=== PATIENT | male | born 1960 | race Caucasian/White ===

== ENCOUNTER 2016-12-01 09:17 | Inpatient (IN) | payer OTHER ==
[2016-12-01] VITALS (19 sets, daily range): BP systolic 98–144; BP diastolic 64–91
[~2016-12-01] VITALS: Ht 175.3 cm; Wt 84.5 kg
[2016-12-01] MEDS ORDERED: HEPARIN for IV BOLUS 10,000 UNIT/10 ML VIAL. ONE ×2 (09:31→10:16)
[2016-12-01] MEDS ORDERED: HEPARIN for IV BOLUS 10,000 UNIT/10 ML VIAL. IV ONE ×2 (09:32→10:30)
[2016-12-01] MEDS ORDERED: LIDOCAINE 1% Multi-Dose 20 ML VIAL. ONE (09:45)
[2016-12-01] MEDS ORDERED: ONDANSETRON PF 4 MG/2 ML VIAL. IV PRN ×2 (09:45→11:15)
[2016-12-01] MEDS ORDERED: fentaNYL PF VIAL 100 MCG/2 ML VIAL IV ONE ×3 (09:45→10:30)
[2016-12-01] MEDS ORDERED: fentaNYL PF VIAL 100 MCG/2 ML VIAL ONE (09:45)
[2016-12-01] MEDS ORDERED: IOHEXOL 300 MG/ML 100ML VIAL. ONE ×2 (09:45→09:46)
[2016-12-01] MEDS ORDERED: HEPARIN for ARTERIAL LINE 1,500 ML ONE (09:45)
[2016-12-01] MEDS ORDERED: fentaNYL PF VIAL 100 MCG/2 ML VIAL IV PRN ×2 (09:45→11:15)
--- NOTE | 2016-12-01 09:45 | PHYS DOC ---
Adult General Chief Complaint Chief Complaint: CHEST PAIN-CARDIAC NATURE HPI HPI Patient is a 56 year old male presenting to the emergency department for evaluation of intense chest pressure that started approximately 1 hour prior to arrival while he was mowing his lawn with a push mower. He says it feels like 100 pound weight is sitting on his chest and makes him somewhat nauseated and short of breath. He was given 100 g of fentanyl prior to arrival in addition to 325 aspirin. [facility] was unable to transmit and EKG however based off with their saying the [facility] was activated as soon as we took report. Patient does look ill arrival and is somewhat hypertensive. He had a transient episode of bradycardia at 50 bpm and his blood pressure decreased to 122/60. He was not given any nitroglycerin by EMS for us. Dr. Simpson came down emergently and agreed to take patient to [facility]. Review of Systems Review of Systems Constitutional: Cool and pale and ill-appearing Eyes: Denies change in visual acuity, redness, or eye pain [] HENT: Denies nasal congestion or sore throat [] Respiratory: Denies cough. + shortness of breath [] Cardiovascular: + CP GI: Denies abdominal pain. + nausea. No vomiting, bloody stools or diarrhea [] : Denies dysuria or hematuria [] Musculoskeletal: Denies back pain or joint pain [] Integument: Denies rash or skin lesions [] Neurologic: Denies headache, focal weakness or sensory changes [] Current Medications Current Medications Current Medications Medications (Trade) Dose Ordered Sig/Henrietta Start Time Stop Time Status Last Admin Dose Admin Heparin Sodium (Porcine) (Heparin Sodium) 4,000 unit 1X ONCE 12/01/16 09:32 12/01/16 09:47 DC 12/01/16 09:32 4,000 UNIT Allergies Allergies Allergies Coded Allergies Type Severity Reaction Last Updated Verified No Known Drug Allergies 12/01/16 No Physical Exam Physical Exam Constitutional: Cool and pale and ill-appearing HENT: Normocephalic, atraumatic, bilateral external ears normal, oropharynx moist, no oral exudates, nose normal. [] Eyes: PERRLA, EOMI, conjunctiva normal, no discharge. [] Neck: Normal range of motion, no tenderness, supple, no stridor. [] Cardiovascular:Heart rate regular rhythm, no murmur [] Lungs & Thorax: Bilateral breath sounds clear to auscultation [] Abdomen: Bowel sounds normal, soft, no tenderness, no masses, no pulsatile masses. [] Skin: cool, dry, no erythema, no rash. [] Back: No tenderness, no CVA tenderness. [] Extremities: No tenderness, no cyanosis, no clubbing, ROM intact, no edema. [] Neurologic: Alert and oriented X 3, normal motor function, normal sensory function, no focal deficits noted. [] Current Patient Data Vital Signs Vital Signs Date Time Temp Pulse Resp B/P (MAP) Pulse Ox O2 Delivery O2 Flow Rate FiO2 12/01/16 09:35 52 13 125/86 (99) 98 12/01/16 09:17 98.8 Room Air 98.8 Lab Values Laboratory Tests Test 12/01/16 09:30 White Blood Count 8.1 x10^3/uL (4.0-11.0) Red Blood Count 4.99 x10^6/uL (4.30-5.70) Hemoglobin 15.8 g/dL (13.0-17.5) Hematocrit 43.1 % (39.0-53.0) Mean Corpuscular Volume 87 fL (79-100) Mean Corpuscular Hemoglobin 32 pg (25-35) Mean Corpuscular Hemoglobin Concent 37 g/dL (31-37) Red Cell Distribution Width 12.6 % (11.5-14.5) Platelet Count 215 x10^3/uL (140-400) Neutrophils (%) (Auto) 69 % (31-73) Lymphocytes (%) (Auto) 22 % (24-48) L Monocytes (%) (Auto) 8 % (0-9) Eosinophils (%) (Auto) 1 % (0-3) Basophils (%) (Auto) 0 % (0-3) Neutrophils # (Auto) 5.6 x10^3uL (1.8-7.7) Lymphocytes # (Auto) 1.8 x10^3/uL (1.0-4.8) Monocytes # (Auto) 0.6 x10^3/uL (0.0-1.1) Eosinophils # (Auto) 0.1 x10^3/uL (0.0-0.7) Basophils # (Auto) 0.0 x10^3/uL (0.0-0.2) Prothrombin Time 13.0 SEC (11.7-14.0) Prothrombin Time INR 1.0 (0.8-1.1) PTT 25 SEC (24-38) Ethyl Alcohol Level < 10 mg/dL (0-10) Laboratory Tests 12/01/16 09:[address] elevation primarily in leads 23 and aVF with some reciprocal ST depression in lead V1 and V2. Radiology/Procedures Radiology/Procedures Chest x-ray shows normal mediastinum borderline cardiomegaly with no obvious free air pneumothorax or opacity. Course & Med Decision Making Course & Med Decision Making Patient is likely suffering from some inferior or posterior ischemia. Patient taken emergently to [facility]. Patient in and out of the department in approximately 35 minutes. There was no obvious arrhythmias noted other than transient sinus bradycardia and his pain was treated with fentanyl. Dragon Disclaimer Dragon Disclaimer This electronic medical record was generated, in whole or in part, using a voice recognition dictation system. Departure Departure Impression: Primary Impression: STEMI (ST elevation myocardial infarction) Disposition: 09 ADMITTED INPATIENT Admitting Physician: Ramón Arriaga Condition: GUARDED Problem Qualifiers Primary Impression: STEMI (ST elevation myocardial infarction) Involved coronary artery: unspecified coronary artery Qualified Codes: I21.3 - ST elevation (STEMI) myocardial infarction of unspecified site PASQUALE LEON DO Dec 01, 2016 09:45
[2016-12-01 09:46] LABS: BASO % 0 % (0-3); EOS % 1 % (0-3); HEMATOCRIT 43.1 % (39.0-53.0); HEMOGLOBIN 15.8 g/dL (13.0-17.5); LYMPH # 1.8 x10^3/uL (1.0-4.8); LYMPH % 22 % (24-48); MEAN CORPUSCULAR HEMOGLOBIN 32 pg (25-35); MEAN CORPUSCULAR HGB CONC 37 g/dL (31-37); MEAN CORPUSCULAR VOLUME 87 fL (79-100); MONO % 8 % (0-9); NEUT % 69 % (31-73); PLATELET COUNT 215 x10^3/uL (140-400); RED BLOOD COUNT 4.99 x10^6/uL (4.30-5.70); RED CELL DISTRIBUTION WIDTH 12.6 % (11.5-14.5); WHITE BLOOD COUNT 8.1 x10^3/uL (4.0-11.0)
[2016-12-01] MEDS ORDERED: MIDAZOLAM HCL/PF 2 MG/2 ML VIAL. ONE (09:46)
[2016-12-01] MEDS ORDERED: LIDOCAINE 2% 20 ML VIAL. ONE (09:46)
--- NOTE | 2016-12-01 09:49 | ACF ---
Admission Forms Criteria MYOCARDIAL INFARCTION Clinical Indications for Admission to Inpatient Care (Place 'X' for any and all applicable criteria): Admission is indicated for 1 or more of the following (1)(2)(3)(4): [X]I. Acute VA [ ]II. Contraindications and/or Inappropriate clinical situations for Observational Care in patients with Myocardial Infarction, when ANY ONE of the following is required: [ ]a) Patient with High risk of cardiac embolism (e.g, patients with previous cardiac embolism, LVEF < 40%, age >75 and patients with prosthetic valve) 18 [ ]b) Patient with Moderate risk including DM patient, CAD and patient aged 65-75 18 [ ]c) Patient with any change in cardiac biomarker especially troponin should be managed as high risk in an inpatient setting 19 [ ]d) Physician judgement irrespective of ECG and other diagnostic findings 20 [ ]III.General contraindications and/or Inappropriate clinical situations for Observational Care in patients with Myocardial Infarction, when ANY ONE of the following is required: [ ]a) Prediction of prolongation of LOS based on ANY ONE of the following may be considered as a contraindication for observational care 2, 3, 4, 5, 6, 7, 8, 9, 10, 11 [ ]i) Age > 65 yrs. [ ]ii) Patient arriving by ambulance [ ]iii) Patient with high acuity [ ]iv) Patient requiring vital sign monitoring [ ]v) Patient on IV medication [ ]b) Systolic blood pressures greater than or equal to 180mmHg 3,12 [ ]c) Patient with altered mental status including delirium and other alteration of consciousness, (3) [ ]d) Patient whose discharge disposition will be to a [place] [facility] home or rehabilitation home should not be managed in Emergency Department Observation Unit. CMS rule requires 3 days hospital stay before such placement. 3,13 [ ]e) Patient with failure to thrive due to broad array of etiologies 3 ,16,17 [ ]f) Inability to ambulate 3,14 Extended stay beyond goal length of stay may be needed for (1)(18)(20)(24)(25): [ ]a) Hemodynamic instability, persisting symptoms after intensive medical management, or recurring severe, prolonged symptoms [ ]b) Intravascular procedural complications such as acute vessel closure, stent thrombosis, stent malposition, or vessel dissection (26)(27)(28) [ ]c) Extravascular procedural complications such as retroperitoneal hematoma , pericardial effusion, or cardiac tamponade [ ]d) Entry site complications causing bleeding, hematoma or distal ischemia and requiring ongoing monitoring, surgical repair or surgical thrombectomy. Dangerous arrhythmia [ ]e) Complicated percutaneous coronary intervention (e.g., unsuccessful percutaneous coronary intervention or percutaneous coronary intervention of non- kake vessel) [ ]f) Urgent or emergent surgery for complications of VA (e.g., ventricular rupture, valvular insufficiency) [ ]g) Surgical revascularization via coronary artery bypass graft [ ]h) Heart failure (e.g., pulmonary edema) [ ]i) Unstable pulmonary comorbidities, including COPD or pneumonia (31) [ ]j) Acute renal failure The original [employer] content created by [employer] has been revised. The portions of the content which have been revised are identified through the use of italic text or in bold, and [facility] [email or web address] has neither reviewed nor approved the modified material. All other unmodified content is copyright [facility] [email or web address] Please see references footnoted in the original [facility] [email or web address] edition 2016 Admission Criteria Met?: Yes LEO SMITH Dec 01, 2016 09:49
--- NOTE | 2016-12-01 10:03 | RAD ---
Indication chest pain. A single view of the chest was obtained and is compared to an examination 03/17/2010. The level of inspiratory effort is slightly suboptimal. The heart and pulmonary vessels are within normal limits given the level of inspiratory effort. A focal process in the chest is not seen. Significant pleural fluid is not present. There is no pneumothorax. IMPRESSION: Slightly suboptimal inspiratory effort. Acute or focal process in the chest is not seen
[2016-12-01] MEDS ORDERED: ATROPINE 0.5 MG/5 ML DISP.SYRIN. ONE (10:04)
[2016-12-01 10:05] LABS: ALBUMIN 3.8 g/dL (3.4-5.0); ALBUMIN/GLOBULIN RATIO 1.2 (1.0-1.7); CREATININE 0.9 mg/dL (0.7-1.3); GFR 87.6; MAGNESIUM 1.9 mg/dL (1.8-2.4); TOTAL BILIRUBIN 1.2 mg/dL (0.2-1.0); TOTAL PROTEIN 7.1 g/dL (6.4-8.2)
[2016-12-01] MEDS ORDERED: TIROFIBAN 12.5MG -0.9% NS 250 ML IV ONE (10:13)
[2016-12-01] MEDS ORDERED: LIDOCAINE 2% 20 ML VIAL. IJ ONE (10:30)
[2016-12-01] MEDS ORDERED: IOHEXOL 300 MG/ML 100ML VIAL. IART ONE (10:30)
[2016-12-01] MEDS ORDERED: ATROPINE 0.5 MG/5 ML DISP.SYRIN. IV ONE (10:30)
[2016-12-01] MEDS ORDERED: CONTRAST GIVEN MC PRN (10:45)
[2016-12-01] MEDS ORDERED: IV NORMAL SALINE 1000ML BAG 1,000 ML IV ONE (10:45)
[2016-12-01] MEDS: TIROFIBAN 12.5MG -0.9% NS 250 ML IV PRN (10:50)
[2016-12-01] MEDS ORDERED: TICAGRELOR 90 MG TABLET. ONE (10:54)
[2016-12-01] MEDS ORDERED: TICAGRELOR 90 MG TABLET. PO ONE (11:00)
--- NOTE | 2016-12-01 11:01 | PDOC2 ---
CONSULT Date of Consult Date of Consult DATE: 12/01/16 TIME: 10:53 Reason for Consult Reason for Consult: chest pain Referring Physician Referring Physician: Dr. Arriaga Identification/Chief Complaint Chief Complaint chest pain Source Source: Patient History of Present Illness Reason for Visit: The patient is a 56 year old male who developed chest pain while mowing his lawn about 60 minutes ago. Paramedics were called and after an EKG was obtained a STEMI was called..The patient arrived in the ER with continued chest pain. ASA was given and a repeat EKG was suggestive of an inferior wall CA. 4,000 units of heparin were given. The patient has an allergy to PCN. No history of CAD but he takes blood pressure medication. An emergency cath and possible revascularization was recommended. Risks and benefits discussed. The patient agreed to proceed. Past Medical History Cardiovascular: HTN Past Surgical History Past Surgical History: No pertinent history Family History Family History: Hypertension Social History No Current Medications Current Medications Current Medications Heparin Sodium (Porcine) (Heparin Sodium) 10,000 unit STK-MED ONCE .ROUTE ; Start 12/01/16 at 09:31; Stop 12/01/16 at 09:32; Status DC Ondansetron HCl (Zofran) 4 mg PRN Q8HRS PRN IV NAUSEA/VOMITING; Start 12/01/16 at 09:45; Stop 12/02/16 at 09:44 Fentanyl Citrate (Fentanyl 2ml Vial) 50 mcg PRN Q2HR PRN IV PAIN; Start at 09:45; Stop 12/02/16 at 09:44 Fentanyl Citrate (Fentanyl 2ml Vial) 50 mcg 1X ONCE IV Last administered on 09:37; Start 12/01/16 at 09:45; Stop 12/01/16 at 09:46; Status DC Iohexol (Omnipaque 300 Mg/ml) 100 ml STK-MED ONCE .ROUTE ; Start 12/01/16 at 09: 45; Stop 12/01/16 at 09:46; Status DC Heparin Sodium/ Sodium Chloride 1,500 ml @ As Directed STK-MED ONCE .ROUTE ; Start 12/01/16 at 09:45; Stop 12/01/16 at 09:46; Status DC Heparin Sodium (Porcine) (Heparin Sodium) 4,000 unit 1X ONCE IV Last administered on 12/01/16 09:32; Start 12/01/16 at 09:32; Stop 12/01/16 at 09:47 ; Status DC Lidocaine HCl 20 ml STK-MED ONCE .ROUTE ; Start 12/01/16 at 09:45; Stop at 09:46; Status DC Fentanyl Citrate (Fentanyl 2ml Vial) 100 mcg STK-MED ONCE .ROUTE ; Start at 09:45; Stop 12/01/16 at 09:46; Status DC Midazolam HCl (Versed) 2 mg STK-MED ONCE .ROUTE ; Start 12/01/16 at 09:46; Stop 12/01/16 at 09:47; Status DC Lidocaine HCl 20 ml STK-MED ONCE .ROUTE ; Start 12/01/16 at 09:46; Stop at 09:47; Status DC Iohexol (Omnipaque 300 Mg/ml) 100 ml STK-MED ONCE .ROUTE ; Start 12/01/16 at 09: 46; Stop 12/01/16 at 09:47; Status DC Fentanyl Citrate (Fentanyl 2ml Vial) 50 mcg 1X ONCE IV Last administered on t 09:50; Start 12/01/16 at 10:00; Stop 12/01/16 at 10:01; Status DC Atropine Sulfate 0.5 mg STK-MED ONCE .ROUTE ; Start 12/01/16 at 10:04; Stop 04/09 at 10:05; Status DC Dopamine HCl/ Dextrose 250 ml @ As Directed STK-MED ONCE IV ; Start 12/01/16 at 10:04; Stop 12/01/16 at 10:05; Status DC Tirofiban/Sodium Chloride 250 ml @ As Directed STK-MED ONCE IV ; Start at 10:13; Stop 12/01/16 at 10:14; Status DC Heparin Sodium (Porcine) (Heparin Sodium) 10,000 unit STK-MED ONCE .ROUTE ; Start 12/01/16 at 10:16; Stop 12/01/16 at 10:17; Status DC Heparin Sodium/ Sodium Chloride 1,000 unit 1X ONCE IART ; Start 12/01/16 at 10: 30; Stop 12/01/16 at 10:35; Status DC Fentanyl Citrate (Fentanyl 2ml Vial) 25 mcg 1X ONCE IV ; Start 12/01/16 at 10: 30; Stop 12/01/16 at 10:35; Status DC Iohexol (Omnipaque 300 Mg/ml) 100 ml 1X ONCE IART ; Start 12/01/16 at 10:30; Stop 12/01/16 at 10:35; Status DC Heparin Sodium (Porcine) (Heparin Sodium) 2,000 unit 1X ONCE IV Last administered on 12/01/16t 10:49; Start 12/01/16 at 10:30; Stop 12/01/16 at 10:35 ; Status DC Atropine Sulfate 0.5 mg 1X ONCE IV ; Start 12/01/16 at 10:30; Stop 12/01/16 at 10:35; Status DC Lidocaine HCl 20 ml 1X ONCE IJ ; Start 12/01/16 at 10:30; Stop 12/01/16 at 10: 35; Status DC Tirofiban/Sodium Chloride 250 ml @ 0 mls/hr CONT PRN IV PER PROTOCOL; Start 04/09 at 10:30; Stop 12/02/16 at 04:29 Info (Do NOT chart on this entry -- for MONITORING) 1 each PRN DAILY PRN MC SEE COMMENTS; Start 12/01/16 at 10:45; Stop 12/03/16 at 10:44 Ticagrelor (Brilinta) 180 mg 1X ONCE PO ; Start 12/01/16 at 11:00; Stop at 11:01 Sodium Chloride 1,000 ml @ 100 mls/hr 1X ONCE IV ; Start 12/01/16 at 10:45; Stop 12/01/16 at 20:44 Allergies Allergies: Coded Allergies: No Known Drug Allergies (Unverified , 12/01/16) ROS Respiratory: YES: Shortness of breath Cardiovascular: yes Chest Pain Gastrointestinal: Yes Nausea Physical Exam General: moderate distress HEENT: Atraumatic Lungs: Clear to auscultation Heart: Regular rate Abdomen: Normal bowel sounds Vitals VITALS Vital Signs Date Time Temp Pulse Resp B/P (MAP) Pulse Ox O2 Delivery O2 Flow Rate FiO2 12/01/16 10:40 70 16 99 Nasal Cannula 2.0 12/01/16 09:45 143/95 (111) 12/01/16 09:17 98.8 98.8 Labs Labs Laboratory Tests Test 12/01/16 09:30 White Blood Count 8.1 x10^3/uL (4.0-11.0) Red Blood Count 4.99 x10^6/uL (4.30-5.70) Hemoglobin 15.8 g/dL (13.0-17.5) Hematocrit 43.1 % (39.0-53.0) Mean Corpuscular Volume 87 fL (79-100) Mean Corpuscular Hemoglobin 32 pg (25-35) Mean Corpuscular Hemoglobin Concent 37 g/dL (31-37) Red Cell Distribution Width 12.6 % (11.5-14.5) Platelet Count 215 x10^3/uL (140-400) Neutrophils (%) (Auto) 69 % (31-73) Lymphocytes (%) (Auto) 22 % (24-48) Monocytes (%) (Auto) 8 % (0-9) Eosinophils (%) (Auto) 1 % (0-3) Basophils (%) (Auto) 0 % (0-3) Neutrophils # (Auto) 5.6 x10^3uL (1.8-7.7) Lymphocytes # (Auto) 1.8 x10^3/uL (1.0-4.8) Monocytes # (Auto) 0.6 x10^3/uL (0.0-1.1) Eosinophils # (Auto) 0.1 x10^3/uL (0.0-0.7) Basophils # (Auto) 0.0 x10^3/uL (0.0-0.2) Prothrombin Time 13.0 SEC (11.7-14.0) Prothromb Time International Ratio 1.0 (0.8-1.1) Activated Partial Thromboplast Time 25 SEC (24-38) Sodium Level 141 mmol/L (136-145) Potassium Level 3.0 mmol/L (3.5-5.1) Chloride Level 104 mmol/L (98-107) Carbon Dioxide Level 27 mmol/L (21-32) Anion Gap 10 (6-14) Blood Urea Nitrogen 14 mg/dL (8-26) Creatinine 0.9 mg/dL (0.7-1.3) Estimated GFR (Cockcroft-Gault) 87.6 BUN/Creatinine Ratio 16 (6-20) Glucose Level 132 mg/dL (70-99) Calcium Level 9.0 mg/dL (8.5-10.1) Magnesium Level 1.9 mg/dL (1.8-2.4) Total Bilirubin 1.2 mg/dL (0.2-1.0) Aspartate Amino Transf (AST/SGOT) 18 U/L (15-37) Alanine Aminotransferase (ALT/SGPT) 23 U/L (16-63) Alkaline Phosphatase 63 U/L (46-116) Creatine Kinase 187 U/L (39-308) Troponin I Quantitative < 0.017 ng/mL (0.000-0.055) KQ-Iti-Y-Type Natriuretic Peptide 19 pg/mL (0-124) Total Protein 7.1 g/dL (6.4-8.2) Albumin 3.8 g/dL (3.4-5.0) Albumin/Globulin Ratio 1.2 (1.0-1.7) Lipase 80 U/L (73-393) Ethyl Alcohol Level < 10 mg/dL (0-10) Laboratory Tests Test 12/01/16 09:30 White Blood Count 8.1 x10^3/uL (4.0-11.0) Red Blood Count 4.99 x10^6/uL (4.30-5.70) Hemoglobin 15.8 g/dL (13.0-17.5) Hematocrit 43.1 % (39.0-53.0) Mean Corpuscular Volume 87 fL (79-100) Mean Corpuscular Hemoglobin 32 pg (25-35) Mean Corpuscular Hemoglobin Concent 37 g/dL (31-37) Red Cell Distribution Width 12.6 % (11.5-14.5) Platelet Count 215 x10^3/uL (140-400) Neutrophils (%) (Auto) 69 % (31-73) Lymphocytes (%) (Auto) 22 % (24-48) Monocytes (%) (Auto) 8 % (0-9) Eosinophils (%) (Auto) 1 % (0-3) Basophils (%) (Auto) 0 % (0-3) Neutrophils # (Auto) 5.6 x10^3uL (1.8-7.7) Lymphocytes # (Auto) 1.8 x10^3/uL (1.0-4.8) Monocytes # (Auto) 0.6 x10^3/uL (0.0-1.1) Eosinophils # (Auto) 0.1 x10^3/uL (0.0-0.7) Basophils # (Auto) 0.0 x10^3/uL (0.0-0.2) Prothrombin Time 13.0 SEC (11.7-14.0) Prothromb Time International Ratio 1.0 (0.8-1.1) Activated Partial Thromboplast Time 25 SEC (24-38) Sodium Level 141 mmol/L (136-145) Potassium Level 3.0 mmol/L (3.5-5.1) Chloride Level 104 mmol/L (98-107) Carbon Dioxide Level 27 mmol/L (21-32) Anion Gap 10 (6-14) Blood Urea Nitrogen 14 mg/dL (8-26) Creatinine 0.9 mg/dL (0.7-1.3) Estimated GFR (Cockcroft-Gault) 87.6 BUN/Creatinine Ratio 16 (6-20) Glucose Level 132 mg/dL (70-99) Calcium Level 9.0 mg/dL (8.5-10.1) Magnesium Level 1.9 mg/dL (1.8-2.4) Total Bilirubin 1.2 mg/dL (0.2-1.0) Aspartate Amino Transf (AST/SGOT) 18 U/L (15-37) Alanine Aminotransferase (ALT/SGPT) 23 U/L (16-63) Alkaline Phosphatase 63 U/L (46-116) Creatine Kinase 187 U/L (39-308) Troponin I Quantitative < 0.017 ng/mL (0.000-0.055) ZO-Poo-Q-Type Natriuretic Peptide 19 pg/mL (0-124) Total Protein 7.1 g/dL (6.4-8.2) Albumin 3.8 g/dL (3.4-5.0) Albumin/Globulin Ratio 1.2 (1.0-1.7) Lipase 80 U/L (73-393) Ethyl Alcohol Level < 10 mg/dL (0-10) Assessment/Plan Assessment/Plan 1. STEMI. ASA and heparin given. Pain continues. Emergency cath. 2. HTN. Will adjust meds post cath. 3. Probable HLD. Lipid panel in the morning. MAHESH OCHOA MD Dec 01, 2016 11:01
--- NOTE | 2016-12-01 11:04 | PDOC4 ---
Operative Note Operative Note Brief cath note. STEMI. LV 126/20, AO 124/76 Mild disease LAD and LCX. Subtotal proximal RCA lesion. 3.0 x 18 Drug eluting stent. 0% residual. Post FL and PCI protocol. Discussed with the patient and family. Full report to follow. MAHESH OCHOA MD Dec 01, 2016 11:04
--- NOTE | 2016-12-01 11:06 | EKG ---
[facility] [address] [place] [address] Test Date: 2016-12-01 Test Time: 09:20:28 Pat Name: NANITA CLARK Department: Room: 104 1 Gender: M [employer] S[employer] Assistant: : [id number] Requested By: PASQUALE LEON Order Number: [id number] Reading MD: Mary Cummins Measurements Intervals Booker Rate: 61 P: 61 NC: 182 QRS: 43 QRSD: 100 T: 110 QT: 412 QTc: 420 Interpretive Statements SINUS RHYTHM ST & T ABNORMALITY, CONSIDER HIGH LATERAL ISCHEMIA OR LEFT VENTRICULAR STRAIN ABNORMAL ECG RI6.01 No previous ECG available for comparison Electronically Signed On 12-01-2016 19:46:05 CDT by Mary Cummins
[2016-12-01] MEDS ORDERED: IV NORMAL SALINE 1000ML BAG 1,000 ML IV SCH (11:07)
[2016-12-01] MEDS ORDERED: NITROGLYCERIN SUBLINGUAL 0.4 MG BOTTLE OF 25. SL PRN (11:15)
[2016-12-01] MEDS ORDERED: AMIODARONE 150 MG in IV DEXTROSE 5% 100 ML IV PRN (11:15)
[2016-12-01] MEDS ORDERED: 0.9 % SODIUM CHLORIDE 10 ML DISP.SYRIN. IV PRN (11:15)
[2016-12-01] MEDS ORDERED: LIDOCAINE 2% 100 MG/5 ML SYRINGE. IV PRN (11:15)
[2016-12-01] MEDS ORDERED: ATROPINE 0.5 MG/5 ML DISP.SYRIN. IV PRN (11:15)
[2016-12-01] MEDS ORDERED: ACETAMINOPHEN 325 MG TABLET. PO PRN (11:15)
[2016-12-01] MEDS ORDERED: oxyCODONE/APAP 5/325 1 TAB TABLET PO PRN (11:15)
[2016-12-01] MEDS ORDERED: TIROFIBAN 12.5MG -0.9% NS 250 ML IV PRN (11:15)
[2016-12-01] MEDS: LISINOPRIL 5 MG TABLET. PO SCH (12:50)
--- NOTE | 2016-12-01 15:33 | PDOC1 ---
History and Physical Past Medical History Cardiovascular: HTN Past Surgical History Past Surgical History: No pertinent history Family History Family History: Hypertension Social History Smoke: No Current Medications Current Medications Current Medications Medications (Trade) Dose Ordered Sig/Henrietta Start Time Stop Time Status Last Admin Dose Admin Acetaminophen (Tylenol) 650 mg PRN Q6HRS PRN 12/01/16 11:15 Amiodarone HCl 150 mg/Dextrose 103 ml @ 10 mls/min 1X PRN PRN 12/01/16 11:15 Aspirin (Ecotrin) 81 mg [id number] 12/02/16 08:00 Atorvastatin Calcium (Lipitor) 20 mg QHS 12/01/16 21:00 Atropine Sulfate 0.5 mg PRN 1X PRN 12/01/16 11:15 Dopamine HCl/ Dextrose 0 ml @ As Directed STK-MED ONCE 12/01/16 10:04 12/01/16 10:05 DC Fentanyl Citrate (Fentanyl 2ml Vial) 50 mcg PRN Q1HR PRN 12/01/16 11:15 Heparin Sodium (Porcine) (Heparin Sodium) 2,000 unit 1X ONCE 12/01/16 10:30 12/01/16 10:35 DC 12/01/16 10:49 2,000 UNIT Heparin Sodium/ Sodium Chloride 1,000 unit 1X ONCE 12/01/16 10:30 12/01/16 10:35 DC 12/01/16 10:52 1,000 UNIT Info (Do NOT chart on this entry -- for MONITORING) 1 each PRN DAILY PRN 12/01/16 10:45 12/03/16 10:44 Iohexol (Omnipaque 300 Mg/ml) 100 ml 1X ONCE 12/01/16 10:30 12/01/16 10:35 DC 12/01/16 10:52 84 ML Lidocaine HCl (Lidocaine HCl 2% Abboject) 100 mg 1X PRN PRN 12/01/16 11:15 Lisinopril (Prinivil) 5 mg DAILY 12/01/16 12:30 12/01/16 12:50 5 MG Metoprolol Tartrate (Lopressor) 12.5 mg BID 12/01/16 21:00 Midazolam HCl (Versed) 2 mg STK-MED ONCE 12/01/16 09:46 12/01/16 09:47 DC Nitroglycerin (Nitrostat) 0.4 mg PRN Q5MIN PRN 12/01/16 11:15 Ondansetron HCl (Zofran) 4 mg PRN Q6HRS PRN 12/01/16 11:15 Oxycodone/ Acetaminophen (Percocet 5/325) 1 tab PRN Q4HRS PRN 12/01/16 11:15 Sodium Chloride 1,000 ml @ 75 mls/hr [id number] 12/01/16 11:07 12/01/16 23:06 12/01/16 12:51 75 MLS/HR Sodium Chloride (Normal Saline Flush) 3 ml QSHIFT PRN 12/01/16 11:15 Ticagrelor (Brilinta) 90 mg BID 12/02/16 09:00 Tirofiban/Sodium Chloride 250 ml @ 0 mls/hr CONT PRN 12/01/16 11:15 12/02/16 05:14 Allergies Allergies Allergies Coded Allergies Type Severity Reaction Last Updated Verified No Known Drug Allergies 12/01/16 No ROS Review of System CONSTITUTIONAL: No fever or chills EYES: No recent changes SKIN: No rash or itching CARDIOVASCULAR: chest pain, no syncope, palpitations, or edema RESPIRATORY: No SOB or cough GASTROINTESTINAL: No nausea, vomiting or abdominal pain NEUROLOGICAL: No headaches or weakness ENDOCRINE: No cold or heat intolerance GENITOURINARY: No urgency or frequency of urination MUSCULOSKELETAL: No back pain or joint pain LYMPHATICS: No enlarged lymph nodes PSYCHIATRIC: No anxiety or depression Physical Exam Physical Exam GEN.: No apparent distress. Alert and oriented. HEENT: Head is normocephalic, atraumatic NECK: Supple. no jvd LUNGS: Clear to auscultation. normal airflow. HEART: RRR, S1, S2 present. Peripheral pulses intact ABDOMEN: Soft, nontender. Positive bowel sounds. EXTREMITIES: Without any cyanosis. NEUROLOGIC: Normal speech, normal tone PSYCHIATRIC: Normal affect, normal mood. SKIN: No ulcerations Vitals Vitals Vital Signs Date Time Temp Pulse Resp B/P (MAP) Pulse Ox O2 Delivery O2 Flow Rate FiO2 12/01/16 15:00 85 16 100/67 (78) 99 Nasal Cannula 2.0 12/01/16 11:00 97.4 97.4 Labs Labs Laboratory Tests Test 12/01/16 09:30 White Blood Count 8.1 x10^3/uL (4.0-11.0) Red Blood Count 4.99 x10^6/uL (4.30-5.70) Hemoglobin 15.8 g/dL (13.0-17.5) Hematocrit 43.1 % (39.0-53.0) Mean Corpuscular Volume 87 fL (79-100) Mean Corpuscular Hemoglobin 32 pg (25-35) Mean Corpuscular Hemoglobin Concent 37 g/dL (31-37) Red Cell Distribution Width 12.6 % (11.5-14.5) Platelet Count 215 x10^3/uL (140-400) Neutrophils (%) (Auto) 69 % (31-73) Lymphocytes (%) (Auto) 22 % (24-48) Monocytes (%) (Auto) 8 % (0-9) Eosinophils (%) (Auto) 1 % (0-3) Basophils (%) (Auto) 0 % (0-3) Neutrophils # (Auto) 5.6 x10^3uL (1.8-7.7) Lymphocytes # (Auto) 1.8 x10^3/uL (1.0-4.8) Monocytes # (Auto) 0.6 x10^3/uL (0.0-1.1) Eosinophils # (Auto) 0.1 x10^3/uL (0.0-0.7) Basophils # (Auto) 0.0 x10^3/uL (0.0-0.2) Prothrombin Time 13.0 SEC (11.7-14.0) Prothromb Time International Ratio 1.0 (0.8-1.1) Activated Partial Thromboplast Time 25 SEC (24-38) Sodium Level 141 mmol/L (136-145) Potassium Level 3.0 mmol/L (3.5-5.1) Chloride Level 104 mmol/L (98-107) Carbon Dioxide Level 27 mmol/L (21-32) Anion Gap 10 (6-14) Blood Urea Nitrogen 14 mg/dL (8-26) Creatinine 0.9 mg/dL (0.7-1.3) Estimated GFR (Cockcroft-Gault) 87.6 BUN/Creatinine Ratio 16 (6-20) Glucose Level 132 mg/dL (70-99) Calcium Level 9.0 mg/dL (8.5-10.1) Magnesium Level 1.9 mg/dL (1.8-2.4) Total Bilirubin 1.2 mg/dL (0.2-1.0) Aspartate Amino Transf (AST/SGOT) 18 U/L (15-37) Alanine Aminotransferase (ALT/SGPT) 23 U/L (16-63) Alkaline Phosphatase 63 U/L (46-116) Creatine Kinase 187 U/L (39-308) Troponin I Quantitative < 0.017 ng/mL (0.000-0.055) FF-Qus-I-Type Natriuretic Peptide 19 pg/mL (0-124) Total Protein 7.1 g/dL (6.4-8.2) Albumin 3.8 g/dL (3.4-5.0) Albumin/Globulin Ratio 1.2 (1.0-1.7) Lipase 80 U/L (73-393) Ethyl Alcohol Level < 10 mg/dL (0-10) Laboratory Tests Test 12/01/16 09:30 White Blood Count 8.1 x10^3/uL (4.0-11.0) Red Blood Count 4.99 x10^6/uL (4.30-5.70) Hemoglobin 15.8 g/dL (13.0-17.5) Hematocrit 43.1 % (39.0-53.0) Mean Corpuscular Volume 87 fL (79-100) Mean Corpuscular Hemoglobin 32 pg (25-35) Mean Corpuscular Hemoglobin Concent 37 g/dL (31-37) Red Cell Distribution Width 12.6 % (11.5-14.5) Platelet Count 215 x10^3/uL (140-400) Neutrophils (%) (Auto) 69 % (31-73) Lymphocytes (%) (Auto) 22 % (24-48) Monocytes (%) (Auto) 8 % (0-9) Eosinophils (%) (Auto) 1 % (0-3) Basophils (%) (Auto) 0 % (0-3) Neutrophils # (Auto) 5.6 x10^3uL (1.8-7.7) Lymphocytes # (Auto) 1.8 x10^3/uL (1.0-4.8) Monocytes # (Auto) 0.6 x10^3/uL (0.0-1.1) Eosinophils # (Auto) 0.1 x10^3/uL (0.0-0.7) Basophils # (Auto) 0.0 x10^3/uL (0.0-0.2) Prothrombin Time 13.0 SEC (11.7-14.0) Prothromb Time International Ratio 1.0 (0.8-1.1) Activated Partial Thromboplast Time 25 SEC (24-38) Sodium Level 141 mmol/L (136-145) Potassium Level 3.0 mmol/L (3.5-5.1) Chloride Level 104 mmol/L (98-107) Carbon Dioxide Level 27 mmol/L (21-32) Anion Gap 10 (6-14) Blood Urea Nitrogen 14 mg/dL (8-26) Creatinine 0.9 mg/dL (0.7-1.3) Estimated GFR (Cockcroft-Gault) 87.6 BUN/Creatinine Ratio 16 (6-20) Glucose Level 132 mg/dL (70-99) Calcium Level 9.0 mg/dL (8.5-10.1) Magnesium Level 1.9 mg/dL (1.8-2.4) Total Bilirubin 1.2 mg/dL (0.2-1.0) Aspartate Amino Transf (AST/SGOT) 18 U/L (15-37) Alanine Aminotransferase (ALT/SGPT) 23 U/L (16-63) Alkaline Phosphatase 63 U/L (46-116) Creatine Kinase 187 U/L (39-308) Troponin I Quantitative < 0.017 ng/mL (0.000-0.055) XA-Gme-E-Type Natriuretic Peptide 19 pg/mL (0-124) Total Protein 7.1 g/dL (6.4-8.2) Albumin 3.8 g/dL (3.4-5.0) Albumin/Globulin Ratio 1.2 (1.0-1.7) Lipase 80 U/L (73-393) Ethyl Alcohol Level < 10 mg/dL (0-10) VTE Prophylaxis Ordered VTE Prophylaxis Devices: Yes VTE Pharmacological Prophylaxi: No AMIE JUSTICE MD Dec 01, 2016 15:33
[2016-12-01] MEDS ORDERED: POTASSIUM CHLORIDE 20 MEQ TABLET.ER. PO ONE (15:45)
--- NOTE | 2016-12-01 15:49 | EKG ---
[address] [place] [address] Test Date: 2016-12-01 Test Time: 15:49:31 Pat Name: ANNITA CLARK Department: Room: 104 1 Gender: M Product Demonstrator: : 1960 Requested By: MAHESH OCHOA Order Number: [id number] Reading MD: Karri Cheng Measurements Intervals Crawford Rate: 60 P: 59 PA: 166 QRS: 42 QRSD: 94 T: 73 QT: 444 QTc: 448 Interpretive Statements SINUS RHYTHM PVC Electronically Signed On 12-04-2016 8:41:56 CDT by Karri Cheng
--- NOTE | 2016-12-01 16:57 | HP ---
ADMIT DATE: 12/01/2016 TIME SEEN: 11:00 a.m. CHIEF COMPLAINT: Chest pain. HISTORY OF PRESENT ILLNESS: A 56-year-old male patient with prior history of hypertension, presented to the ER with complaints of acute onset of chest pain. Chest pain started this morning after he started mowing his lawn, located in the center of the chest, very intense. On arrival, he was diagnosed with STEMI and he was emergently taken to cardiac catheterization. I have seen the patient after cardiac catheterization in the Critical Care Unit and the patient was still complaining of some mild chest pain; however, this pain is much better. He says this is coming and going. He denies any other symptoms such as nausea, vomiting, or palpitations. PAST MEDICAL HISTORY: Hypertension. FAMILY HISTORY: Hypertension. PERSONAL HISTORY: No smoking, no alcohol, no drug abuse. REVIEW OF SYSTEMS: Please see my electronic H and P. PHYSICAL EXAMINATION: Please see my electronic H and P. ALLERGIES: NKDA. HOME MEDICATIONS: Reviewed and reconciled. Please see MRAD. LABORATORY FINDINGS: 1. CBC: Within normal limits. 2. Chemistry: First set of troponin 0.017 and potassium 3.0, sodium is 141, carbon dioxide is 27, anion gap is 10, creatinine 0.9. 3. Coagulation: INR 1.0 and PTT 25. IMAGING STUDIES: 1. Chest x-ray: No acute process seen. 2. EKG personally reviewed, inferior wall CA noted. ASSESSMENT: 1. Inferior wall ST-segment elevation myocardial infarction. 2. Status post cardiac catheterization with percutaneous coronary intervention to right coronary artery, drug-eluting stent placed. 3. Hypokalemia. 4. Hypertension. PLAN: 1. Postsurgery, the patient has been placed in the Critical Care Unit. Currently, he is on Brilinta, aspirin, Lipitor, metoprolol and lisinopril. We will continue supportive care. He will be monitored in the Critical Care Unit. Amiodarone placed for antiarrhythmia. 2. Continue current supportive care. Cardiology has been following. 3. CBC and BMP in a.m. 4. Potassium has been replaced. 5. Prognosis is good. 6. If the patient continued to have any chest pain, we will give p.r.n. nitroglycerin. 7. Monitor vitals closely. AMIE JUSTICE MD DR: Susan JOB#: [id number] / [id number] KAVITHA
[2016-12-01] MEDS: ATORVASTATIN CALCIUM 20 MG TABLET PO SCH (21:19)
[2016-12-01] MEDS: METOPROLOL TART IMMED RELEASE 25 MG TABLET. PO SCH (21:21)
[2016-12-02] VITALS (15 sets, daily range): BP systolic 79–107; BP diastolic 52–82
[2016-12-02] MEDS: TIROFIBAN 12.5MG -0.9% NS 250 ML IV PRN (00:09)
[2016-12-02 05:41] LABS: BASO % 0 % (0-3); EOS % 0 % (0-3); HEMATOCRIT 39.3 % (39.0-53.0); HEMOGLOBIN 14.1 g/dL (13.0-17.5); LYMPH # 1.1 x10^3/uL (1.0-4.8); LYMPH % 10 % (24-48); MEAN CORPUSCULAR HEMOGLOBIN 32 pg (25-35); MEAN CORPUSCULAR HGB CONC 36 g/dL (31-37); MEAN CORPUSCULAR VOLUME 88 fL (79-100); MONO % 6 % (0-9); NEUT % 84 % (31-73); PLATELET COUNT 174 x10^3/uL (140-400); RED BLOOD COUNT 4.46 x10^6/uL (4.30-5.70); RED CELL DISTRIBUTION WIDTH 13.2 % (11.5-14.5); WHITE BLOOD COUNT 11.6 x10^3/uL (4.0-11.0)
[2016-12-02 05:57] LABS: CALCIUM 8.8 mg/dL (8.5-10.1); CREATININE 0.9 mg/dL (0.7-1.3); GFR 87.6
[2016-12-02 06:04] LABS: MAGNESIUM 2.1 mg/dL (1.8-2.4)
[2016-12-02 06:06] LABS: CHOLESTEROL/HDL RATIO 4.8
[2016-12-02] MEDS: TICAGRELOR 90 MG TABLET. PO SCH ×2 (08:03→21:00)
[2016-12-02] MEDS: ASPIRIN ENTERIC COATED 81 MG TABLET.DR. PO SCH (08:03)
[2016-12-02] MEDS: METOPROLOL TART IMMED RELEASE 25 MG TABLET. PO SCH ×2 (09:00→21:00)
[2016-12-02] MEDS: LISINOPRIL 5 MG TABLET. PO SCH (09:00)
--- NOTE | 2016-12-02 10:25 | PDOC ---
PROGRESS NOTES Chief Complaint Chief Complaint cc: chest pain A/P 1. Inferior wall ST-segment elevation myocardial infarction: overnight VT 40 Beat, will monitor on telemetry, asymptomatic. not ready for dc home. on amiodarone. 2. Status post cardiac catheterization with percutaneous coronary intervention to right coronary artery, drug-eluting stent placed. 3. Hypokalemia Resolved 4. Hypertension. stable. Vitals Vitals Vital Signs Date Time Temp Pulse Resp B/P (MAP) Pulse Ox O2 Delivery O2 Flow Rate FiO2 12/02/16 09:00 64 12 99/65 (76) 99 Room Air 12/02/16 08:00 98.0 98.0 12/01/16 18:00 2.0 Physical Exam General: Alert, Oriented X3, moderate distress Heart: Regular rate, Normal S1, Normal S2 Lungs: Clear Abdomen: Normal bowel sounds, Soft Extremities: No clubbing Labs LABS Laboratory Tests Test 12/01/16 15:54 12/02/16 05:00 Potassium Level 3.7 mmol/L (3.5-5.1) 4.0 mmol/L (3.5-5.1) Troponin I Quantitative 15.660 ng/mL (0.000-0.055) 18.868 ng/mL (0.000-0.055) White Blood Count 11.6 x10^3/uL (4.0-11.0) Red Blood Count 4.46 x10^6/uL (4.30-5.70) Hemoglobin 14.1 g/dL (13.0-17.5) Hematocrit 39.3 % (39.0-53.0) Mean Corpuscular Volume 88 fL (79-100) Mean Corpuscular Hemoglobin 32 pg (25-35) Mean Corpuscular Hemoglobin Concent 36 g/dL (31-37) Red Cell Distribution Width 13.2 % (11.5-14.5) Platelet Count 174 x10^3/uL (140-400) Neutrophils (%) (Auto) 84 % (31-73) Lymphocytes (%) (Auto) 10 % (24-48) Monocytes (%) (Auto) 6 % (0-9) Eosinophils (%) (Auto) 0 % (0-3) Basophils (%) (Auto) 0 % (0-3) Neutrophils # (Auto) 9.8 x10^3uL (1.8-7.7) Lymphocytes # (Auto) 1.1 x10^3/uL (1.0-4.8) Monocytes # (Auto) 0.7 x10^3/uL (0.0-1.1) Eosinophils # (Auto) 0.0 x10^3/uL (0.0-0.7) Basophils # (Auto) 0.0 x10^3/uL (0.0-0.2) Sodium Level 141 mmol/L (136-145) Chloride Level 106 mmol/L (98-107) Carbon Dioxide Level 28 mmol/L (21-32) Anion Gap 7 (6-14) Blood Urea Nitrogen 13 mg/dL (8-26) Creatinine 0.9 mg/dL (0.7-1.3) Estimated GFR (Cockcroft-Gault) 87.6 Glucose Level 131 mg/dL (70-99) Calcium Level 8.8 mg/dL (8.5-10.1) Magnesium Level 2.1 mg/dL (1.8-2.4) Triglycerides Level 97 mg/dL (0-150) Cholesterol Level 125 mg/dL (0-200) LDL Cholesterol, Calculated 80 mg/dL (0-100) VLDL Cholesterol, Calculated 19 mg/dL (0-40) Non-HDL Cholesterol Calculated 99 mg/dL (0-129) HDL Cholesterol 26 mg/dL (40-60) Cholesterol/HDL Ratio 4.8 Comment Review of Relevant I have reviewed the following items sushil (where applicable) has been applied. Labs Laboratory Tests Test 12/01/16 09:30 12/01/16 15:54 12/02/16 05:00 White Blood Count 8.1 x10^3/uL (4.0-11.0) 11.6 x10^3/uL (4.0-11.0) Red Blood Count 4.99 x10^6/uL (4.30-5.70) 4.46 x10^6/uL (4.30-5.70) Hemoglobin 15.8 g/dL (13.0-17.5) 14.1 g/dL (13.0-17.5) Hematocrit 43.1 % (39.0-53.0) 39.3 % (39.0-53.0) Mean Corpuscular Volume 87 fL (79-100) 88 fL (79-100) Mean Corpuscular Hemoglobin 32 pg (25-35) 32 pg (25-35) Mean Corpuscular Hemoglobin Concent 37 g/dL (31-37) 36 g/dL (31-37) Red Cell Distribution Width 12.6 % (11.5-14.5) 13.2 % (11.5-14.5) Platelet Count 215 x10^3/uL (140-400) 174 x10^3/uL (140-400) Neutrophils (%) (Auto) 69 % (31-73) 84 % (31-73) Lymphocytes (%) (Auto) 22 % (24-48) 10 % (24-48) Monocytes (%) (Auto) 8 % (0-9) 6 % (0-9) Eosinophils (%) (Auto) 1 % (0-3) 0 % (0-3) Basophils (%) (Auto) 0 % (0-3) 0 % (0-3) Neutrophils # (Auto) 5.6 x10^3uL (1.8-7.7) 9.8 x10^3uL (1.8-7.7) Lymphocytes # (Auto) 1.8 x10^3/uL (1.0-4.8) 1.1 x10^3/uL (1.0-4.8) Monocytes # (Auto) 0.6 x10^3/uL (0.0-1.1) 0.7 x10^3/uL (0.0-1.1) Eosinophils # (Auto) 0.1 x10^3/uL (0.0-0.7) 0.0 x10^3/uL (0.0-0.7) Basophils # (Auto) 0.0 x10^3/uL (0.0-0.2) 0.0 x10^3/uL (0.0-0.2) Prothrombin Time 13.0 SEC (11.7-14.0) Prothromb Time International Ratio 1.0 (0.8-1.1) Activated Partial Thromboplast Time 25 SEC (24-38) Sodium Level 141 mmol/L (136-145) 141 mmol/L (136-145) Potassium Level 3.0 mmol/L (3.5-5.1) 3.7 mmol/L (3.5-5.1) 4.0 mmol/L (3.5-5.1) Chloride Level 104 mmol/L (98-107) 106 mmol/L (98-107) Carbon Dioxide Level 27 mmol/L (21-32) 28 mmol/L (21-32) Anion Gap 10 (6-14) 7 (6-14) Blood Urea Nitrogen 14 mg/dL (8-26) 13 mg/dL (8-26) Creatinine 0.9 mg/dL (0.7-1.3) 0.9 mg/dL (0.7-1.3) Estimated GFR (Cockcroft-Gault) 87.6 87.6 BUN/Creatinine Ratio 16 (6-20) Glucose Level 132 mg/dL (70-99) 131 mg/dL (70-99) Calcium Level 9.0 mg/dL (8.5-10.1) 8.8 mg/dL (8.5-10.1) Magnesium Level 1.9 mg/dL (1.8-2.4) 2.1 mg/dL (1.8-2.4) Total Bilirubin 1.2 mg/dL (0.2-1.0) Aspartate Amino Transf (AST/SGOT) 18 U/L (15-37) Alanine Aminotransferase (ALT/SGPT) 23 U/L (16-63) Alkaline Phosphatase 63 U/L (46-116) Creatine Kinase 187 U/L (39-308) Troponin I Quantitative < 0.017 ng/mL (0.000-0.055) 15.660 ng/mL (0.000-0.055) 18.868 ng/mL (0.000-0.055) QK-Bcu-G-Type Natriuretic Peptide 19 pg/mL (0-124) Total Protein 7.1 g/dL (6.4-8.2) Albumin 3.8 g/dL (3.4-5.0) Albumin/Globulin Ratio 1.2 (1.0-1.7) Lipase 80 U/L (73-393) Ethyl Alcohol Level < 10 mg/dL (0-10) Triglycerides Level 97 mg/dL (0-150) Cholesterol Level 125 mg/dL (0-200) LDL Cholesterol, Calculated 80 mg/dL (0-100) VLDL Cholesterol, Calculated 19 mg/dL (0-40) Non-HDL Cholesterol Calculated 99 mg/dL (0-129) HDL Cholesterol 26 mg/dL (40-60) Cholesterol/HDL Ratio 4.8 Laboratory Tests Test 12/01/16 15:54 12/02/16 05:00 Potassium Level 3.7 mmol/L (3.5-5.1) 4.0 mmol/L (3.5-5.1) Troponin I Quantitative 15.660 ng/mL (0.000-0.055) 18.868 ng/mL (0.000-0.055) White Blood Count 11.6 x10^3/uL (4.0-11.0) Red Blood Count 4.46 x10^6/uL (4.30-5.70) Hemoglobin 14.1 g/dL (13.0-17.5) Hematocrit 39.3 % (39.0-53.0) Mean Corpuscular Volume 88 fL (79-100) Mean Corpuscular Hemoglobin 32 pg (25-35) Mean Corpuscular Hemoglobin Concent 36 g/dL (31-37) Red Cell Distribution Width 13.2 % (11.5-14.5) Platelet Count 174 x10^3/uL (140-400) Neutrophils (%) (Auto) 84 % (31-73) Lymphocytes (%) (Auto) 10 % (24-48) Monocytes (%) (Auto) 6 % (0-9) Eosinophils (%) (Auto) 0 % (0-3) Basophils (%) (Auto) 0 % (0-3) Neutrophils # (Auto) 9.8 x10^3uL (1.8-7.7) Lymphocytes # (Auto) 1.1 x10^3/uL (1.0-4.8) Monocytes # (Auto) 0.7 x10^3/uL (0.0-1.1) Eosinophils # (Auto) 0.0 x10^3/uL (0.0-0.7) Basophils # (Auto) 0.0 x10^3/uL (0.0-0.2) Sodium Level 141 mmol/L (136-145) Chloride Level 106 mmol/L (98-107) Carbon Dioxide Level 28 mmol/L (21-32) Anion Gap 7 (6-14) Blood Urea Nitrogen 13 mg/dL (8-26) Creatinine 0.9 mg/dL (0.7-1.3) Estimated GFR (Cockcroft-Gault) 87.6 Glucose Level 131 mg/dL (70-99) Calcium Level 8.8 mg/dL (8.5-10.1) Magnesium Level 2.1 mg/dL (1.8-2.4) Triglycerides Level 97 mg/dL (0-150) Cholesterol Level 125 mg/dL (0-200) LDL Cholesterol, Calculated 80 mg/dL (0-100) VLDL Cholesterol, Calculated 19 mg/dL (0-40) Non-HDL Cholesterol Calculated 99 mg/dL (0-129) HDL Cholesterol 26 mg/dL (40-60) Cholesterol/HDL Ratio 4.8 Medications Current Medications Heparin Sodium (Porcine) (Heparin Sodium) 10,000 unit STK-MED ONCE .ROUTE ; Start 12/01/16 at 09:31; Stop 12/01/16 at 09:32; Status DC Ondansetron HCl (Zofran) 4 mg PRN Q8HRS PRN IV NAUSEA/VOMITING Last administered on 12/01/16 13:23; Start 12/01/16 at 09:45; Stop 12/02/16 at 09:44 ; Status DC Fentanyl Citrate (Fentanyl 2ml Vial) 50 mcg PRN Q2HR PRN IV PAIN Last administered on 12/01/16 13:46; Start 12/01/16 at 09:45; Stop 12/02/16 at 09:44 ; Status DC Fentanyl Citrate (Fentanyl 2ml Vial) 50 mcg 1X ONCE IV Last administered on 09:37; Start 12/01/16 at 09:45; Stop 12/01/16 at 09:46; Status DC Iohexol (Omnipaque 300 Mg/ml) 100 ml STK-MED ONCE .ROUTE ; Start 12/01/16 at 09: 45; Stop 12/01/16 at 09:46; Status DC Heparin Sodium/ Sodium Chloride 1,500 ml @ As Directed STK-MED ONCE .ROUTE ; Start 12/01/16 at 09:45; Stop 12/01/16 at 09:46; Status DC Heparin Sodium (Porcine) (Heparin Sodium) 4,000 unit 1X ONCE IV Last administered on 12/01/16 09:32; Start 12/01/16 at 09:32; Stop 12/01/16 at 09:47 ; Status DC Lidocaine HCl 20 ml STK-MED ONCE .ROUTE ; Start 12/01/16 at 09:45; Stop at 09:46; Status DC Fentanyl Citrate (Fentanyl 2ml Vial) 100 mcg STK-MED ONCE .ROUTE ; Start at 09:45; Stop 12/01/16 at 09:46; Status DC Midazolam HCl (Versed) 2 mg STK-MED ONCE .ROUTE ; Start 12/01/16 at 09:46; Stop 12/01/16 at 09:47; Status DC Lidocaine HCl 20 ml STK-MED ONCE .ROUTE ; Start 12/01/16 at 09:46; Stop at 09:47; Status DC Iohexol (Omnipaque 300 Mg/ml) 100 ml STK-MED ONCE .ROUTE ; Start 12/01/16 at 09: 46; Stop 12/01/16 at 09:47; Status DC Fentanyl Citrate (Fentanyl 2ml Vial) 50 mcg 1X ONCE IV Last administered on t 09:50; Start 12/01/16 at 10:00; Stop 12/01/16 at 10:01; Status DC Atropine Sulfate 0.5 mg STK-MED ONCE .ROUTE ; Start 12/01/16 at 10:04; Stop 04/09 at 10:05; Status DC Dopamine HCl/ Dextrose 0 ml @ As Directed STK-MED ONCE IV ; Start 12/01/16 at 10 :04; Stop 12/01/16 at 10:05; Status DC Tirofiban/Sodium Chloride 250 ml @ As Directed STK-MED ONCE IV ; Start at 10:13; Stop 12/01/16 at 10:14; Status DC Heparin Sodium (Porcine) (Heparin Sodium) 10,000 unit STK-MED ONCE .ROUTE ; Start 12/01/16 at 10:16; Stop 12/01/16 at 10:17; Status DC Heparin Sodium/ Sodium Chloride 1,000 unit 1X ONCE IART Last administered on 10:52; Start 12/01/16 at 10:30; Stop 12/01/16 at 10:35; Status DC Fentanyl Citrate (Fentanyl 2ml Vial) 25 mcg 1X ONCE IV Last administered on 10:51; Start 12/01/16 at 10:30; Stop 12/01/16 at 10:35; Status DC Iohexol (Omnipaque 300 Mg/ml) 100 ml 1X ONCE IART Last administered on 10:52; Start 12/01/16 at 10:30; Stop 12/01/16 at 10:35; Status DC Heparin Sodium (Porcine) (Heparin Sodium) 2,000 unit 1X ONCE IV Last administered on 12/01/16 10:49; Start 12/01/16 at 10:30; Stop 12/01/16 at 10:35 ; Status DC Atropine Sulfate 0.5 mg 1X ONCE IV ; Start 12/01/16 at 10:30; Stop 12/01/16 at 10:35; Status DC Lidocaine HCl 20 ml 1X ONCE IJ Last administered on 12/01/16 10:51; Start 04/09 at 10:30; Stop 12/01/16 at 10:35; Status DC Tirofiban/Sodium Chloride 250 ml @ 0 mls/hr CONT PRN IV PER PROTOCOL Last administered on 12/02/16 00:09; Start 12/01/16 at 10:30; Stop 12/02/16 at 04:29 ; Status DC Info (Do NOT chart on this entry -- for MONITORING) 1 each PRN DAILY PRN MC SEE COMMENTS; Start 12/01/16 at 10:45; Stop 12/03/16 at 10:44 Ticagrelor (Brilinta) 180 mg 1X ONCE PO Last administered on 12/01/16 10:52; Start 12/01/16 at 11:00; Stop 12/01/16 at 11:01; Status DC Sodium Chloride 1,000 ml @ 100 mls/hr 1X ONCE IV Last administered on 10:50; Start 12/01/16 at 10:45; Stop 12/01/16 at 20:44; Status DC Ticagrelor (Brilinta) 90 mg STK-MED ONCE .ROUTE ; Start 12/01/16 at 10:54; Stop 12/01/16 at 10:55; Status DC Sodium Chloride (Normal Saline Flush) 3 ml QSHIFT PRN IV AFTER MEDS AND BLOOD DRAWS; Start 12/01/16 at 11:15 Sodium Chloride 1,000 ml @ 75 mls/hr [id number] IV Last administered on 12:51; Start 12/01/16 at 11:07; Stop 12/01/16 at 23:06; Status DC Tirofiban/Sodium Chloride 250 ml @ 0 mls/hr CONT PRN IV PER PROTOCOL; Start 04/09 at 11:15; Stop 12/02/16 at 05:14; Status DC Aspirin (Ecotrin) 81 mg [id number] PO Last administered on 12/02/16 08:03; Start 12/02/16 at 08:00 Ticagrelor (Brilinta) 90 mg BID PO Last administered on 12/02/16 08:03; Start 12/02/16 at 09:00 Metoprolol Tartrate (Lopressor) 12.5 mg BID PO Last administered on 12/01/16 21:21; Start 12/01/16 at 21:00 Lisinopril (Prinivil) 5 mg DAILY PO Last administered on 12/01/16 12:50; Start 12/01/16 at 12:30 Atorvastatin Calcium (Lipitor) 20 mg QHS PO Last administered on 12/01/16 21: 19; Start 12/01/16 at 21:00 Acetaminophen (Tylenol) 650 mg PRN Q6HRS PRN PO MILD PAIN / TEMP Last administered on 12/01/16 17:08; Start 12/01/16 at 11:15 Fentanyl Citrate (Fentanyl 2ml Vial) 50 mcg PRN Q1HR PRN IV MODERATE OR SEVERE PAIN; Start 12/01/16 at 11:15 Ondansetron HCl (Zofran) 4 mg PRN Q6HRS PRN IV NAUSEA/VOMITING; Start 12/01/16 at 11:15 Nitroglycerin (Nitrostat) 0.4 mg PRN Q5MIN PRN SL CHEST PAIN; Start 12/01/16 at 11:15 Amiodarone HCl 150 mg/Dextrose 103 ml @ 10 mls/min 1X PRN PRN IV FOR VENTRICULAR TACHYCARDIA; Start 12/01/16 at 11:15 Lidocaine HCl (Lidocaine HCl 2% Abboject) 100 mg 1X PRN PRN IV FOR VENTRICULAR TACHYCARDIA; Start 12/01/16 at 11:15 Atropine Sulfate 0.5 mg PRN 1X PRN IV BRADYCARDIA; Start 12/01/16 at 11:15 Oxycodone/ Acetaminophen (Percocet 5/325) 1 tab PRN Q4HRS PRN PO MILD PAIN; Start 12/01/16 at 11:15 Potassium Chloride (Klor-Con) 40 meq 1X ONCE PO Last administered on t 15:45; Start 12/01/16 at 15:45; Stop 12/01/16 at 15:46; Status DC Vitals/I & O Vital Sign - Last 24 Hours 12/01/16 12/01/16 12/01/16 12/01/16 10:40 10:51 11:00 11:15 Temp 97.4 97.4 Pulse 70 76 66 Resp 16 16 22 16 B/P (MAP) 136/85 (102) 128/82 (97) Pulse Ox 99 99 95 96 O2 Delivery Nasal Cannula Nasal Cannula Nasal Cannula Nasal Cannula O2 Flow Rate 2.0 2.0 2.0 2.0 12/01/16 12/01/16 12/01/16 12/01/16 11:30 11:36 11:45 12:00 Pulse 65 64 70 Resp 14 18 16 B/P (MAP) 129/81 (97) 133/86 (102) 127/84 (98) Pulse Ox 97 97 97 O2 Delivery Nasal Cannula Nasal Cannula Nasal Cannula Nasal Cannula O2 Flow Rate 2.0 2.0 2.0 2.0 12/01/16 12/01/16 12/01/16 12/01/16 12:15 12:30 12:50 13:00 Pulse 63 66 65 69 Resp 14 16 16 B/P (MAP) 123/83 (96) 122/72 (89) 119/75 111/73 (86) Pulse Ox 96 97 98 O2 Delivery Nasal Cannula Nasal Cannula Nasal Cannula O2 Flow Rate 2.0 2.0 2.0 12/01/16 12/01/16 12/01/16 12/01/16 13:46 14:00 14:16 15:00 Pulse 71 85 Resp 22 20 12 16 B/P (MAP) 125/79 (94) 100/67 (78) Pulse Ox 97 98 98 99 O2 Delivery Nasal Cannula Nasal Cannula Nasal Cannula Nasal Cannula O2 Flow Rate 2.0 2.0 2.0 2.0 12/01/16 12/01/16 12/01/16 12/01/16 16:00 16:00 17:00 18:00 Temp 98.0 98.0 Pulse 57 61 61 Resp 12 16 18 B/P (MAP) 102/69 (80) 113/75 (88) 105/70 (82) Pulse Ox 100 100 100 O2 Delivery Nasal Cannula Nasal Cannula Nasal Cannula Nasal Cannula O2 Flow Rate 2.0 2.0 2.0 2.0 12/01/16 12/01/16 12/01/16 12/01/16 19:00 19:35 20:00 21:00 Temp 98.2 98.2 Pulse 63 65 62 Resp 18 16 16 B/P (MAP) 110/73 (85) 104/69 (81) 98/64 (75) Pulse Ox 98 99 99 O2 Delivery Room Air Room Air Room Air Room Air 12/01/16 12/01/16 12/01/16 12/02/16 21:21 22:00 23:00 00:00 Temp 98.0 98.0 Pulse 81 58 56 60 Resp 16 16 16 B/P (MAP) 98/64 101/64 (76) 110/68 (82) 87/60 (69) Pulse Ox 95 96 97 O2 Delivery Room Air Room Air Room Air 12/02/16 12/02/16 12/02/16 12/02/16 00:12 01:00 02:00 03:00 Pulse 62 55 61 Resp 16 16 18 B/P (MAP) 93/63 (73) 79/52 (61) 88/63 (71) Pulse Ox 97 97 97 O2 Delivery Room Air Room Air Room Air Room Air 12/02/16 12/02/16 12/02/16 12/02/16 04:00 04:00 05:00 06:00 Temp 98.0 98.0 Pulse 61 68 58 Resp 18 18 18 B/P (MAP) 97/67 (77) 96/61 (73) 90/59 (69) Pulse Ox 97 98 99 O2 Delivery Room Air Room Air Room Air Room Air 12/02/16 12/02/16 12/02/16 12/02/16 07:00 08:00 08:00 09:00 Temp 98.0 98.0 Pulse 65 61 64 Resp 20 16 12 B/P (MAP) 93/58 (70) 101/69 (80) 99/65 (76) Pulse Ox 99 100 99 O2 Delivery Room Air Room Air Room Air Room Air Intake and Output 12/01/16 12/01/16 12/02/16 15:00 23:00 07:00 Intake Total 1316 ml 1049 ml Output Total 800 ml Balance 1316 ml 249 ml AMIE JUSTICE MD Dec 02, 2016 10:24
--- NOTE | 2016-12-02 11:55 | EKG ---
[facility] [address] [place] [id number] Test Date: 2016-12-02 Test Time: 11:57:05 Pat Name: ANNITA CLARK Department: Room: 211 1 Gender: M [employer] Technician: RICHARD : 1960 Requested By: MAHESH OCHOA Order Number: [id number] Reading MD: Karri Cheng Measurements Intervals [place] Rate: 58 P: 55 DE: 160 QRS: 12 QRSD: 82 T: -9 QT: 434 QTc: 430 Interpretive Statements SINUS RHYTHM CONSISTENT WITH INFERIOR INFARCT Electronically Signed On 12-04-2016 8:49:52 CDT by Karri Cheng
--- NOTE | 2016-12-02 14:13 | PDOC ---
PROGRESS NOTES Subjective Subjective The patient looks and feels better today. Chest pain has resolved. Objective Objective Vital Signs Date Time Temp Pulse Resp B/P (MAP) Pulse Ox O2 Delivery O2 Flow Rate FiO2 12/02/16 13:42 98.1 79 16 107/71 (83) 99 Room Air 98.1 12/01/16 18:00 2.0 Intake and Output 12/02/16 07:00 Intake Total 2365 ml Output Total 800 ml Balance 1565 ml Intake Oral 350 ml IV Total 2015 ml Output Urine Total 800 ml Physical Exam Abdomen: Normal bowel sounds Heart: Regular rate General: No acute distress HEENT: Atraumatic Lungs: Clear to auscultation Assessment Assessment 1. ST elevated myocardial infarction. Status post stenting of an occluded right coronary artery. The patient is looking and feeling better. Peak troponin of 18. Will continue present medications increase activities. Echocardiogram to evaluate for LV function. 2. Hypertension. Will increase activities and adjust medications as needed. Comment Review of Relevant I have reviewed the following items sushil (where applicable) has been applied. Labs Laboratory Tests Test 12/01/16 09:30 12/01/16 15:54 12/02/16 05:00 White Blood Count 8.1 x10^3/uL (4.0-11.0) 11.6 x10^3/uL (4.0-11.0) Red Blood Count 4.99 x10^6/uL (4.30-5.70) 4.46 x10^6/uL (4.30-5.70) Hemoglobin 15.8 g/dL (13.0-17.5) 14.1 g/dL (13.0-17.5) Hematocrit 43.1 % (39.0-53.0) 39.3 % (39.0-53.0) Mean Corpuscular Volume 87 fL (79-100) 88 fL (79-100) Mean Corpuscular Hemoglobin 32 pg (25-35) 32 pg (25-35) Mean Corpuscular Hemoglobin Concent 37 g/dL (31-37) 36 g/dL (31-37) Red Cell Distribution Width 12.6 % (11.5-14.5) 13.2 % (11.5-14.5) Platelet Count 215 x10^3/uL (140-400) 174 x10^3/uL (140-400) Neutrophils (%) (Auto) 69 % (31-73) 84 % (31-73) Lymphocytes (%) (Auto) 22 % (24-48) 10 % (24-48) Monocytes (%) (Auto) 8 % (0-9) 6 % (0-9) Eosinophils (%) (Auto) 1 % (0-3) 0 % (0-3) Basophils (%) (Auto) 0 % (0-3) 0 % (0-3) Neutrophils # (Auto) 5.6 x10^3uL (1.8-7.7) 9.8 x10^3uL (1.8-7.7) Lymphocytes # (Auto) 1.8 x10^3/uL (1.0-4.8) 1.1 x10^3/uL (1.0-4.8) Monocytes # (Auto) 0.6 x10^3/uL (0.0-1.1) 0.7 x10^3/uL (0.0-1.1) Eosinophils # (Auto) 0.1 x10^3/uL (0.0-0.7) 0.0 x10^3/uL (0.0-0.7) Basophils # (Auto) 0.0 x10^3/uL (0.0-0.2) 0.0 x10^3/uL (0.0-0.2) Prothrombin Time 13.0 SEC (11.7-14.0) Prothromb Time International Ratio 1.0 (0.8-1.1) Activated Partial Thromboplast Time 25 SEC (24-38) Sodium Level 141 mmol/L (136-145) 141 mmol/L (136-145) Potassium Level 3.0 mmol/L (3.5-5.1) 3.7 mmol/L (3.5-5.1) 4.0 mmol/L (3.5-5.1) Chloride Level 104 mmol/L (98-107) 106 mmol/L (98-107) Carbon Dioxide Level 27 mmol/L (21-32) 28 mmol/L (21-32) Anion Gap 10 (6-14) 7 (6-14) Blood Urea Nitrogen 14 mg/dL (8-26) 13 mg/dL (8-26) Creatinine 0.9 mg/dL (0.7-1.3) 0.9 mg/dL (0.7-1.3) Estimated GFR (Cockcroft-Gault) 87.6 87.6 BUN/Creatinine Ratio 16 (6-20) Glucose Level 132 mg/dL (70-99) 131 mg/dL (70-99) Calcium Level 9.0 mg/dL (8.5-10.1) 8.8 mg/dL (8.5-10.1) Magnesium Level 1.9 mg/dL (1.8-2.4) 2.1 mg/dL (1.8-2.4) Total Bilirubin 1.2 mg/dL (0.2-1.0) Aspartate Amino Transf (AST/SGOT) 18 U/L (15-37) Alanine Aminotransferase (ALT/SGPT) 23 U/L (16-63) Alkaline Phosphatase 63 U/L (46-116) Creatine Kinase 187 U/L (39-308) Troponin I Quantitative < 0.017 ng/mL (0.000-0.055) 15.660 ng/mL (0.000-0.055) 18.868 ng/mL (0.000-0.055) WO-Tcy-F-Type Natriuretic Peptide 19 pg/mL (0-124) Total Protein 7.1 g/dL (6.4-8.2) Albumin 3.8 g/dL (3.4-5.0) Albumin/Globulin Ratio 1.2 (1.0-1.7) Lipase 80 U/L (73-393) Ethyl Alcohol Level < 10 mg/dL (0-10) Triglycerides Level 97 mg/dL (0-150) Cholesterol Level 125 mg/dL (0-200) LDL Cholesterol, Calculated 80 mg/dL (0-100) VLDL Cholesterol, Calculated 19 mg/dL (0-40) Non-HDL Cholesterol Calculated 99 mg/dL (0-129) HDL Cholesterol 26 mg/dL (40-60) Cholesterol/HDL Ratio 4.8 Laboratory Tests Test 12/01/16 15:54 12/02/16 05:00 Potassium Level 3.7 mmol/L (3.5-5.1) 4.0 mmol/L (3.5-5.1) Troponin I Quantitative 15.660 ng/mL (0.000-0.055) 18.868 ng/mL (0.000-0.055) White Blood Count 11.6 x10^3/uL (4.0-11.0) Red Blood Count 4.46 x10^6/uL (4.30-5.70) Hemoglobin 14.1 g/dL (13.0-17.5) Hematocrit 39.3 % (39.0-53.0) Mean Corpuscular Volume 88 fL (79-100) Mean Corpuscular Hemoglobin 32 pg (25-35) Mean Corpuscular Hemoglobin Concent 36 g/dL (31-37) Red Cell Distribution Width 13.2 % (11.5-14.5) Platelet Count 174 x10^3/uL (140-400) Neutrophils (%) (Auto) 84 % (31-73) Lymphocytes (%) (Auto) 10 % (24-48) Monocytes (%) (Auto) 6 % (0-9) Eosinophils (%) (Auto) 0 % (0-3) Basophils (%) (Auto) 0 % (0-3) Neutrophils # (Auto) 9.8 x10^3uL (1.8-7.7) Lymphocytes # (Auto) 1.1 x10^3/uL (1.0-4.8) Monocytes # (Auto) 0.7 x10^3/uL (0.0-1.1) Eosinophils # (Auto) 0.0 x10^3/uL (0.0-0.7) Basophils # (Auto) 0.0 x10^3/uL (0.0-0.2) Sodium Level 141 mmol/L (136-145) Chloride Level 106 mmol/L (98-107) Carbon Dioxide Level 28 mmol/L (21-32) Anion Gap 7 (6-14) Blood Urea Nitrogen 13 mg/dL (8-26) Creatinine 0.9 mg/dL (0.7-1.3) Estimated GFR (Cockcroft-Gault) 87.6 Glucose Level 131 mg/dL (70-99) Calcium Level 8.8 mg/dL (8.5-10.1) Magnesium Level 2.1 mg/dL (1.8-2.4) Triglycerides Level 97 mg/dL (0-150) Cholesterol Level 125 mg/dL (0-200) LDL Cholesterol, Calculated 80 mg/dL (0-100) VLDL Cholesterol, Calculated 19 mg/dL (0-40) Non-HDL Cholesterol Calculated 99 mg/dL (0-129) HDL Cholesterol 26 mg/dL (40-60) Cholesterol/HDL Ratio 4.8 Medications Current Medications Heparin Sodium (Porcine) (Heparin Sodium) 10,000 unit STK-MED ONCE .ROUTE ; Start 12/01/16 at 09:31; Stop 12/01/16 at 09:32; Status DC Ondansetron HCl (Zofran) 4 mg PRN Q8HRS PRN IV NAUSEA/VOMITING Last administered on 12/01/16 13:23; Start 12/01/16 at 09:45; Stop 12/02/16 at 09:44 ; Status DC Fentanyl Citrate (Fentanyl 2ml Vial) 50 mcg PRN Q2HR PRN IV PAIN Last administered on 12/01/16 13:46; Start 12/01/16 at 09:45; Stop 12/02/16 at 09:44 ; Status DC Fentanyl Citrate (Fentanyl 2ml Vial) 50 mcg 1X ONCE IV Last administered on 09:37; Start 12/01/16 at 09:45; Stop 12/01/16 at 09:46; Status DC Iohexol (Omnipaque 300 Mg/ml) 100 ml STK-MED ONCE .ROUTE ; Start 12/01/16 at 09: 45; Stop 12/01/16 at 09:46; Status DC Heparin Sodium/ Sodium Chloride 1,500 ml @ As Directed STK-MED ONCE .ROUTE ; Start 12/01/16 at 09:45; Stop 12/01/16 at 09:46; Status DC Heparin Sodium (Porcine) (Heparin Sodium) 4,000 unit 1X ONCE IV Last administered on 12/01/16 09:32; Start 12/01/16 at 09:32; Stop 12/01/16 at 09:47 ; Status DC Lidocaine HCl 20 ml STK-MED ONCE .ROUTE ; Start 12/01/16 at 09:45; Stop at 09:46; Status DC Fentanyl Citrate (Fentanyl 2ml Vial) 100 mcg STK-MED ONCE .ROUTE ; Start at 09:45; Stop 12/01/16 at 09:46; Status DC Midazolam HCl (Versed) 2 mg STK-MED ONCE .ROUTE ; Start 12/01/16 at 09:46; Stop 12/01/16 at 09:47; Status DC Lidocaine HCl 20 ml STK-MED ONCE .ROUTE ; Start 12/01/16 at 09:46; Stop at 09:47; Status DC Iohexol (Omnipaque 300 Mg/ml) 100 ml STK-MED ONCE .ROUTE ; Start 12/01/16 at 09: 46; Stop 12/01/16 at 09:47; Status DC Fentanyl Citrate (Fentanyl 2ml Vial) 50 mcg 1X ONCE IV Last administered on 09:50; Start 12/01/16 at 10:00; Stop 12/01/16 at 10:01; Status DC Atropine Sulfate 0.5 mg STK-MED ONCE .ROUTE ; Start 12/01/16 at 10:04; Stop 04/09 at 10:05; Status DC Dopamine HCl/ Dextrose 0 ml @ As Directed STK-MED ONCE IV ; Start 12/01/16 at 10 :04; Stop 12/01/16 at 10:05; Status DC Tirofiban/Sodium Chloride 250 ml @ As Directed STK-MED ONCE IV ; Start at 10:13; Stop 12/01/16 at 10:14; Status DC Heparin Sodium (Porcine) (Heparin Sodium) 10,000 unit STK-MED ONCE .ROUTE ; Start 12/01/16 at 10:16; Stop 12/01/16 at 10:17; Status DC Heparin Sodium/ Sodium Chloride 1,000 unit 1X ONCE IART Last administered on 10:52; Start 12/01/16 at 10:30; Stop 12/01/16 at 10:35; Status DC Fentanyl Citrate (Fentanyl 2ml Vial) 25 mcg 1X ONCE IV Last administered on 10:51; Start 12/01/16 at 10:30; Stop 12/01/16 at 10:35; Status DC Iohexol (Omnipaque 300 Mg/ml) 100 ml 1X ONCE IART Last administered on 10:52; Start 12/01/16 at 10:30; Stop 12/01/16 at 10:35; Status DC Heparin Sodium (Porcine) (Heparin Sodium) 2,000 unit 1X ONCE IV Last administered on 12/01/16 10:49; Start 12/01/16 at 10:30; Stop 12/01/16 at 10:35 ; Status DC Atropine Sulfate 0.5 mg 1X ONCE IV ; Start 12/01/16 at 10:30; Stop 12/01/16 at 10:35; Status DC Lidocaine HCl 20 ml 1X ONCE IJ Last administered on 12/01/16 10:51; Start 04/09 at 10:30; Stop 12/01/16 at 10:35; Status DC Tirofiban/Sodium Chloride 250 ml @ 0 mls/hr CONT PRN IV PER PROTOCOL Last administered on 12/02/16 00:09; Start 12/01/16 at 10:30; Stop 12/02/16 at 04:29 ; Status DC Info (Do NOT chart on this entry -- for MONITORING) 1 each PRN DAILY PRN MC SEE COMMENTS; Start 12/01/16 at 10:45; Stop 12/03/16 at 10:44 Ticagrelor (Brilinta) 180 mg 1X ONCE PO Last administered on 12/01/16 10:52; Start 12/01/16 at 11:00; Stop 12/01/16 at 11:01; Status DC Sodium Chloride 1,000 ml @ 100 mls/hr 1X ONCE IV Last administered on 10:50; Start 12/01/16 at 10:45; Stop 12/01/16 at 20:44; Status DC Ticagrelor (Brilinta) 90 mg STK-MED ONCE .ROUTE ; Start 12/01/16 at 10:54; Stop 12/01/16 at 10:55; Status DC Sodium Chloride (Normal Saline Flush) 3 ml QSHIFT PRN IV AFTER MEDS AND BLOOD DRAWS; Start 12/01/16 at 11:15 Sodium Chloride 1,000 ml @ 75 mls/hr [id number] IV Last administered on 12:51; Start 12/01/16 at 11:07; Stop 12/01/16 at 23:06; Status DC Tirofiban/Sodium Chloride 250 ml @ 0 mls/hr CONT PRN IV PER PROTOCOL; Start 04/09 at 11:15; Stop 12/02/16 at 05:14; Status DC Aspirin (Ecotrin) 81 mg [id number] PO Last administered on 12/02/16 08:03; Start 12/02/16 at 08:00 Ticagrelor (Brilinta) 90 mg BID PO Last administered on 12/02/16 08:03; Start 12/02/16 at 09:00 Metoprolol Tartrate (Lopressor) 12.5 mg BID PO Last administered on 12/01/16 21:21; Start 12/01/16 at 21:00 Lisinopril (Prinivil) 5 mg DAILY PO Last administered on 12/01/16 12:50; Start 12/01/16 at 12:30 Atorvastatin Calcium (Lipitor) 20 mg QHS PO Last administered on 12/01/16 21: 19; Start 12/01/16 at 21:00 Acetaminophen (Tylenol) 650 mg PRN Q6HRS PRN PO MILD PAIN / TEMP Last administered on 12/01/16 17:08; Start 12/01/16 at 11:15 Fentanyl Citrate (Fentanyl 2ml Vial) 50 mcg PRN Q1HR PRN IV MODERATE OR SEVERE PAIN; Start 12/01/16 at 11:15 Ondansetron HCl (Zofran) 4 mg PRN Q6HRS PRN IV NAUSEA/VOMITING; Start 12/01/16 at 11:15 Nitroglycerin (Nitrostat) 0.4 mg PRN Q5MIN PRN SL CHEST PAIN; Start 12/01/16 at 11:15 Amiodarone HCl 150 mg/Dextrose 103 ml @ 10 mls/min 1X PRN PRN IV FOR VENTRICULAR TACHYCARDIA; Start 12/01/16 at 11:15 Lidocaine HCl (Lidocaine HCl 2% Abboject) 100 mg 1X PRN PRN IV FOR VENTRICULAR TACHYCARDIA; Start 12/01/16 at 11:15 Atropine Sulfate 0.5 mg PRN 1X PRN IV BRADYCARDIA; Start 12/01/16 at 11:15 Oxycodone/ Acetaminophen (Percocet 5/325) 1 tab PRN Q4HRS PRN PO MILD PAIN; Start 12/01/16 at 11:15 Potassium Chloride (Klor-Con) 40 meq 1X ONCE PO Last administered on 15:45; Start 12/01/16 at 15:45; Stop 12/01/16 at 15:46; Status DC Vitals/I & O Vital Sign - Last 24 Hours 12/01/16 12/01/16 12/01/16 12/01/16 14:16 15:00 16:00 16:00 Temp 98.0 98.0 Pulse 85 57 Resp 12 16 12 B/P (MAP) 100/67 (78) 102/69 (80) Pulse Ox 98 99 100 O2 Delivery Nasal Cannula Nasal Cannula Nasal Cannula Nasal Cannula O2 Flow Rate 2.0 2.0 2.0 2.0 12/01/16 12/01/16 12/01/16 12/01/16 17:00 18:00 19:00 19:35 Temp 98.2 98.2 Pulse 61 61 63 Resp 16 18 18 B/P (MAP) 113/75 (88) 105/70 (82) 110/73 (85) Pulse Ox 100 100 98 O2 Delivery Nasal Cannula Nasal Cannula Room Air Room Air O2 Flow Rate 2.0 2.0 12/01/16 12/01/16 12/01/16 12/01/16 20:00 21:00 21:21 22:00 Pulse 65 62 81 58 Resp 16 16 16 B/P (MAP) 104/69 (81) 98/64 (75) 98/64 101/64 (76) Pulse Ox 99 99 95 O2 Delivery Room Air Room Air Room Air 12/01/16 12/02/16 12/02/16 12/02/16 23:00 00:00 00:12 01:00 Temp 98.0 98.0 Pulse 56 60 62 Resp 16 16 16 B/P (MAP) 110/68 (82) 87/60 (69) 93/63 (73) Pulse Ox 96 97 97 O2 Delivery Room Air Room Air Room Air Room Air 12/02/16 12/02/16 12/02/16 12/02/16 02:00 03:00 04:00 04:00 Temp 98.0 98.0 Pulse 55 61 61 Resp 16 18 18 B/P (MAP) 79/52 (61) 88/63 (71) 97/67 (77) Pulse Ox 97 97 97 O2 Delivery Room Air Room Air Room Air Room Air 12/02/16 12/02/16 12/02/16 12/02/16 05:00 06:00 07:00 08:00 Pulse 68 58 65 Resp 18 18 20 B/P (MAP) 96/61 (73) 90/59 (69) 93/58 (70) Pulse Ox 98 99 99 O2 Delivery Room Air Room Air Room Air Room Air 12/02/16 12/02/16 12/02/16 12/02/16 08:00 09:00 11:00 13:42 Temp 98.0 98.1 98.0 98.1 Pulse 61 64 82 79 Resp 16 12 16 16 B/P (MAP) 101/69 (80) 99/65 (76) 100/82 (88) 107/71 (83) Pulse Ox 100 99 98 99 O2 Delivery Room Air Room Air Room Air Room Air Intake and Output 12/01/16 12/01/16 12/02/16 15:00 23:00 07:00 Intake Total 1316 ml 1049 ml Output Total 800 ml Balance 1316 ml 249 ml MAHESH OCHOA MD Dec 02, 2016 14:13
[2016-12-02] MEDS: ATORVASTATIN CALCIUM 20 MG TABLET PO SCH (21:17)
[2016-12-03 02:52] VITALS: BP 91/69
[2016-12-03 07:50] VITALS: BP 101/70
[2016-12-03] MEDS: TICAGRELOR 90 MG TABLET. PO SCH (09:49)
[2016-12-03] MEDS: ASPIRIN ENTERIC COATED 81 MG TABLET.DR. PO SCH (09:49)
[2016-12-03] MEDS: LISINOPRIL 5 MG TABLET. PO SCH (09:52)
[2016-12-03] MEDS: METOPROLOL TART IMMED RELEASE 25 MG TABLET. PO SCH (09:53)
[2016-12-03] MEDS ORDERED: ATOR20TA58 PO (10:50)
[2016-12-03] MEDS ORDERED: TICA90TA PO (10:50)
[2016-12-03] MEDS ORDERED: METO25TA4 PO (10:50)
[2016-12-03] MEDS ORDERED: ASPI-612 PO (10:50)
[2016-12-03 11:14] VITALS: BP 109/72
[2016-12-03] MEDS ORDERED: LISI-338 PO (11:28)
--- NOTE | 2016-12-03 11:36 | PDOC ---
CARDIO Progress Notes Date and Time Date of Service 12/03/2016 Time of Evaluation 1136 Subjective Subjective: No Chest Pain, No shortness of breath, No Palpitations, No Dizziness Vitals Vitals Vital Signs Date Time Temp Pulse Resp B/P (MAP) Pulse Ox O2 Delivery O2 Flow Rate FiO2 12/03/16 11:14 99.2 71 19 109/72 (84) 99 Room Air 99.2 Weight Weight [ ] Input and Output Intake and Output Intake and Output 12/03/16 06:59 Intake Total 2900 ml Output Total 650 ml Balance 2250 ml Intake Oral 2900 ml Output Urine Total 650 ml # Voids 5 Physical Exam HEENT: Neck Supple W Full Motion Chest: Symmetric LUNGS: Clear to Auscultation Heart: S1S2, RRR, no rubs, no gallops, no murmurs, other (tele: SR) Abdomen: Soft N/T Extremities: 2+ Dorsalis Pedis, 2+ Posterior Tibial Neurology: alert, oriented, follow commands Assessment Assessment 1. STEMI [place] to mid RCA continue DAPT X 12 months BB and ACEI 2. HTN reduce ACEI as BP low normotensive 3. HLD continue statin therapy 4. tobacco abuse DAVID [employer] Dec 03, 2016 11:36
[2016-12-03] MEDS ORDERED: LISI2.5T PO (14:10)
--- NOTE | 2016-12-03 15:00 | CARD ---
APPROVED REPORT EXAM: Two-dimensional and M-mode echocardiogram with Doppler and color Doppler. Other Information Quality : Good INDICATION STEMI 2D DIMENSIONS RVDd2.7 (2.9-3.5cm)Left Atrium(2D)3.8 (1.6-4.0cm) IVSd1.1 (0.7-1.1cm)Aortic Root(2D)2.6 (2.0-3.7cm) LVDd4.7 (3.9-5.9cm)LVOT Diameter2.1 (1.8-2.4cm) PWd1.1 (0.7-1.1cm)LVDs3.6 (2.5-4.0cm) FS (%) 22.7 %SV46.4 ml LVEF(%)45.7 (>50%) Aortic Valve AoV Peak Zeyad.113.6cm/sAoV VTI19.9cm AO Peak GR.5.2mmHgLVOT Peak Zeyad.103.4cm/s AO Mean GR.3mmHgAVA (VMAX)3.28cm2 JAMIE (VTI)3.30cm2 Mitral Valve MV E Bjrdwspv577.1cm/sMV DECEL [id number] MV A Ybmeogno40.7cm/sE/A Ratio1.7 LEFT VENTRICLE The left ventricle is normal size. There is normal left ventricular wall thickness. Base to mid infer ior wall hypokinesis. The Ejection Fraction is 45%. RIGHT VENTRICLE The right ventricle is normal size. The right ventricular systolic function is normal. ATRIA The left atrium size is normal. The right atrium size is normal. The interatrial septum is intact wit h no evidence for an atrial septal defect or patent foramen ovale as noted on 2-D or Doppler imaging. AORTIC VALVE The aortic valve is calcified but opens well. Doppler and Color Flow revealed no significant aortic r egurgitation. There is no significant aortic valvular stenosis. MITRAL VALVE The mitral valve is normal in structure and function. There is no evidence of mitral valve prolapse. There is no mitral valve stenosis. Doppler and Color-flow revealed trace mitral regurgitation. TRICUSPID VALVE The tricuspid valve is normal in structure and function. Doppler and Color Flow revealed no tricuspid valve regurgitation noted. There is no tricuspid valve stenosis. PULMONIC VALVE The pulmonary valve is normal in structure and function. Doppler and Color Flow revealed no pulmonic valvular regurgitation. There is no pulmonic valvular stenosis. GREAT VESSELS The aortic root is normal in size. The ascending aorta is normal in size. The IVC is normal in size a nd collapses >50% with inspiration. PERICARDIAL EFFUSION There is no evidence of significant pericardial effusion. Critical Notification Critical Value: No <Conclusion> Base to mid inferior wall hypokinesis. The Ejection Fraction is 45%. Doppler and Color-flow revealed trace mitral regurgitation. There is no evidence of significant pericardial effusion.
--- NOTE | 2016-12-03 16:20 | CARD ---
APPROVED REPORT Procedures Selective coronary angiogram Left heart catheterization Drug-coated stent placed to the right coronary artery. The patient is a 56-year-old male who was admitted through the emergency room for episodes of chest p ain. EKG was suggestive of inferior wall ST elevated myocardial infarction. Emergency catheterization was recommended to the patient. Risks and benefits were discussed. The patient agreed to proceed. After informed consent was obtained the patient was brought to the heart catheterization lab. The are a of the right femoral artery was prepared in the usual manner with Betadine, sterile draping and loc al anesthetic. An 18-gauge needle was used to enter the right femoral artery, a wire placed and a 6 F rench sheath placed over the wire. A 6 Frisian JL4 diagnostic catheter was used to engage the left cor onary system and sequential injections in various views were obtained. A 6 Frisian JR 4 guide with brooke e holes was used to engage the right coronary artery. Injection showed a subtotal mid lesion. Heparin and Aggrastat were given as per protocol. The lesion was crossed with a high-torque wire and predila tony with a 2.5 x 12 mm Trek balloon with 2 inflations at 8 francis for 10 seconds. It was then stented wi th a 3.0 x 18 Xience Alpine drug-eluting stent with 1 inflation at 15 francis for 15 seconds. Residual le anum was 0%. The wire and the guiding system were removed from the patient. A pigtail catheter was th en advanced into the left ventricle and pressures were obtained. Pullback pressure was measured. Cath eter was removed for the patient. Injection of the sheath showed normal placement. The sheath was rem roshan and sealed with an angioseal. The patient was moved to the holding area. Findings. Hemodynamics. LV pressure 124/20, aortic pressure of 122/76. Coronaries. Left main. The left main had no lesions. Left anterior descending. The LAD was a moderate size vessel with normal distribution. It had a mid 1 5-20% lesion. Left circumflex. The left circumflex is a moderate size vessel. It had a distal 15% lesion. Right coronary artery. Right coronary was a moderate size vessel. It had a subtotal mid lesion. <Conclusion> Severe single-vessel coronary artery disease with a subtotal lesion in the mid right coronary artery. Successful drug-eluting stent placement to the right coronary artery lesion with a 0% residual. Mild disease in the LAD and left circumflex systems.
[2016-12-04] MEDS ORDERED: LISINOPRIL 2.5 MG TABLET PO SCH (21:00)
== END 2016-12-03 15:00 | disposition home or self-care (01) | DRG 247 ==
LOC: ER 09:17 → 1 WEST ICU 09:35 → 2 NORTH 12-02 11:40
PROVIDERS: ADMIT Internal Medicine; ATTEND Internal Medicine
PROC: 4A023N7 Measurement of Cardiac Sampling and Pressure, Left Heart, Percutaneous Approach (ICD-10-PCS; principal; 2016-12-01)
PROC: 027034Z Dilation of Coronary Artery, One Artery with Drug-eluting Intraluminal Device, Percutaneous Approach (ICD-10-PCS; 2016-12-01)
PROC: B2111ZZ Fluoroscopy of Multiple Coronary Arteries using Low Osmolar Contrast (ICD-10-PCS; 2016-12-01)
DX: I21.19 ST elevation (STEMI) myocardial infarction involving other coronary artery of inferior wall (principal); I10 Essential (primary) hypertension; E87.6 Hypokalemia; E78.5 Hyperlipidemia, unspecified; I25.9 Chronic ischemic heart disease, unspecified; Z72.0 Tobacco use; Z82.49 Family history of ischemic heart disease and other diseases of the circulatory system; Z88.0 Allergy status to penicillin; Z95.5 Presence of coronary angioplasty implant and graft; I25.2 Old myocardial infarction
CPT/HCPCS: 36415; 71010; 80048; 80053; 80061; 82550; 83690; 83735; 83880; 84132; 84484; 85027; 85610; 85730; 87641; 92941; 93005; 93306; 93458; 96374; 96375; 99406; C1725; C1769; C1771; C1874; C1887; C1892; G0269; G0480; J2405; J3010; J7030; Q9967; 99285-25; J3246